=== PATIENT | male | born 1935 | race Caucasian/White ===

== ENCOUNTER 2020-10-10 11:05 | Emergency (ER) | payer OTHER, MEDICARE, MEDICAID, SELFPAY ==
[2020-10-10] VITALS (7 sets, daily range): BP systolic 153–183; BP diastolic 87–92; PULSE 73–93; RESP 17–22; TEMP 36.5–36.6; O2SAT 90–96; BMI 26.4
--- NOTE | 2020-10-10 12:11 | XR_ITS ---
WS: [id number] Portable AP upright chest, 10/10/2020 Clinical Data: sob Comparison: None. Findings: No nodules, masses or effusions are seen. The heart is normal. The pulmonary vascularity is not increased. No pneumonia or pneumothorax is seen. The aortic arch and descending aorta show minim al calcification and tortuosity. The diaphragms are flattened. There are monitor leads on the chest w all. XR/XR chest 1V portable [id number] Impression: Atherosclerosis and hyperinflation.
[2020-10-10] MEDS: ipratropium-albuterol 3 mL Neb INHALATION (12:27)
--- NOTE | 2020-10-10 12:42 | ED_ITS ---
Documented by User: Mario Sanders MD 10/10/20 14:44 HPI - SOB/Dyspnea General: Chief Complaint: Shortness of Breath/Dyspnea Stated Complaint: SOB, anxiety, Time Seen by Provider: 10/10/20 11:52 Source: patient Mode of arrival: ambulatory Limitations: no limitations History of Present Illness: HPI Narrative: 85-year-old male who has history of congestive heart failure. He states he has got chronic shortness of breath and cough. [facility] his [facility]. He said some exertional dyspnea he states this is pretty typical. He had an increased cough. Denies any fever. Denies any worsening improving factors. Patient resting comfortably here. He is 95% on room air. Associated symptoms: Deny abdominal pain, chest pain, fever(s), nausea or vomiting Review of Systems Const: Denies: fever(s), chills, body aches or change in appetite Eyes: Denies: blurry vision or eye discomfort ENMT: Denies: throat pain or dental pain Card: Denies: chest pain Resp: Reports: dyspnea GI: Denies: abdominal pain, nausea, vomiting or diarrhea : Denies: dysuria Musc: Denies: neck pain or back pain Skin/Breast: Denies: rash Neuro: Denies: headache(s) Psych: Denies: depression Vince/Lymph: Denies: easy bruising All/Imm: Denies: urticaria Physical Exam Const: COMMON NORMALS: no acute distress, patient oriented x3 and healthy appearing HENMT: COMMON NORMALS: normocephalic and atraumatic HEAD & SCALP: normocephalic and atraumatic Eye: COMMON NORMALS: Equal, round and reactive pupils present and EOMs intact bilaterally PUPIL: Yes Equal, round and reactive pupils present Neck/C-Spine: COMMON NORMALS: full ROM and supple Chest: COMMONS NORMALS: normal inspection of the chest and normal palpation of entire chest wall Resp: COMMON NORMALS: normal respiratory effort, No retractions, No use of accessory muscles and clear to auscultation bilaterally AUSCULTATION: clear to auscultation bilaterally Cardio: COMMON NORMALS: regular rate, regular rhythm and No murmurs present (Cardio) RATE: regular rate RHYTHM: regular rhythm GI: COMMON NORMALS: Normal to inspection, nondistended, normoactive bowel sounds present, Soft to palpation, non-tender and no masses PALPATION: Yes Soft to palpation Extremity: COMMON NORMALS: normal to inspection and full ROM NARRATIVE EXTREMITY EXAM: 1+ edema Neuro: COMMON NORMALS: patient oriented x3, moves all extremities and no focal motor deficits Psych: COMMON NORMALS: mental status grossly normal, Normal thought process present and cooperative THOUGHT PROCESS: Normal thought process present Skin: COMMON NORMALS: no rashes or lesions noted and no wounds GENERAL SKIN EXAM: no rashes or lesions noted Course Vital Signs: Vital signs: Vital Signs Temperature 97.7 F 10/10/20 12:21 Pulse Rate 73 10/10/20 14:34 Respiratory Rate 21 H 10/10/20 14:34 Blood Pressure 183/91 10/10/20 14:34 Pulse Oximetry 96 10/10/20 14:34 MDM - SOB/Dyspnea MDM Narrative: Medical decision making narrative: Patient presents her dyspnea is chronic in nature with his COPD. He has no distress here. They were concerned about E[facility] findings that [facility]. He has no acute findings here and he is has no chest pain. He is stable for discharge is to follow-up his PCP and return if worsening. He understands agrees to plan. He has no signs of pulmonary embolism or acute coronary syndrome. Lab Data: Labs: Lab Results 10/10/20 10/10/20 10/10/20 Range/Units 12:30 12:30 12:30 WBC 6.6 (4.0-10.0) 10^3/ uL RBC 5.55 H (4.1-5.3) 10^6/u L Hgb 17.0 H (11.7-16.6) g/dL Hct 51.6 (42.0-52.0) % MCV 93.0 (80-94) fL MCH 30.6 (28.0-34.0) pg MCHC 32.9 (30.0-36.0) g/dL RDW 13.1 (12.1-15.1) % Plt Count 226 (130-400) 10^3/c mm MPV 10.0 (7.4-10.4) fL Neut % (Auto) 58.1 % Lymph % (Auto) 31.3 % Rhea % (Auto) 7.1 % Eos % (Auto) 2.6 % Baso % (Auto) 0.6 % Neut # (Auto) 3.86 (1.8-7.7) 10^3/u L Lymph # (Auto) 2.1 (0.8-4.8) 10^3/u L Rhea # (Auto) 0.5 (0.2-0.9) 10^3/u L Eos # (Auto) 0.2 (0.0-0.8) 10^3/u L Baso # (Auto) 0.0 (0.0-0.1) 10^3/u L Nucleated RBC % (a uto) 0 % Nucleated RBCs # 0.0 /100WBC Sodium 139 (136-145) mmol/L Potassium 4.8 (3.5-5.1) mmol/L Chloride 104 (98-107) mmol/L Carbon Dioxide 27 (22-29) mmol/L Anion Gap 12.8 (5-19) BUN 13 (8-23) mg/dL Creatinine 0.9 (0.7-1.2) mg/dL GFR Calculation Not Reportable Glucose 96 (65-115) mg/dL Calculated Osmolal ity 288 (285-295) mOsm/k g Calcium 8.8 (8.5-10.5) mg/dL Total Bilirubin 0.4 (0.15-1.2) mg/dL AST 22 (0-40) U/L ALT 27 (0-41) U/L Alkaline Phosphata se 56 (40-130) IU/L NT-Pro-B Natriuret Pep 82 (0-450) pg/mL Total Protein 6.9 (6.6-8.7) g/dL Albumin 4.3 (3.5-5.2) g/dL Globulin 2.6 (1.3-4.6) g/dL SARS-CoV-2 Ag (Rap id) Negative (Negative) Imaging Data^: CXR: Attestation: I personally reviewed and interpreted this imaging study as follows: Radiologist's impression: [address] [address] XRay Report Signed Patient: John Li Unit #: [id number] : 1935 Acct#:[id number] Age/Sex: 85 / M ADM Date: 10/10/20 Loc: ER Room/Bed: Attending Dr: Ordering Provider/Ordering MD: Mario Sanders MD Date of Service: 10/10/20 Procedure(s): XR chest 1V portable [id number] Accession Number(s): [id number] Report Number: [id number] WS: [id number] Portable AP upright chest, 10/10/2020 Clinical Data: sob Comparison: None. Findings: No nodules, masses or effusions are seen. The heart is normal. The pulmonary vascularity is not increased. No pneumonia or pneumothorax is seen. The aortic arch and descending aorta show minimal calcification and tortuosity. The diaphragms are flattened. There are monitor leads on the chest wall. XR/XR chest 1V portable [id number] Impression: Atherosclerosis and hyperinflation. Dictated By: Letty Fontaine MD Signed By: Letty Fontaine MD Signed Date/Time: 10/10/20 1250 DD/ 1249 EKG Data^: EKG 1: Attestation: I personally reviewed and interpreted this EKG as follows: EKG Interpretation Date: 10/10/20 EKG interpretation time: 13:59 Interpretation: nsr hr [address] or t wave abnormalities qrs 80 qtc 393 Discharge Plan Discharge Patient Disposition: Home Clinical Impression: Dyspnea Qualifiers: Dyspnea type: unspecified Qualified Code(s): R06.00 - Dyspnea, unspecified Condition: Stable Prescriptions: No Action alprazolam 0.25 mg tablet 0.25 mg PO TID PRN (Reason: Anxiety) RF: 0 pravastatin 80 mg Tablet 80 mg PO DAILY RF: 0 albuterol sulfate 90 mcg/actuation HFA aerosol inhaler 2 puff INHALATION Q4H PRN (Reason: Shortness Of Breath) RF: 0 Symbicort 160-4.5 mcg/actuation HFA aerosol inhaler 2 puff INHALATION BID RF: 0 Spiriva Respimat 2.5 mcg/actuation Mist 1 puff INHALATION DAILY RF: 0 Discharge Orders: Discharge ED (Routine); Ordered 10/10/20 Ordered By: Mario Sanders Referrals: Georgia Figueredo [Primary Care Provider] - 1-3 days Discharge Diet: Advance as tolerated Discharge Activity: Use walker/crutches as instructed Patient Instructions: Dyspnea (ED) Coding Level of Care Code ED Certified Vehicle Fire Investigator for Chg Fwd Exam Comprehensive Documented by User: Kyaw Devi DO 10/14/20 06:27 HPI - SOB/Dyspnea General: Chief Complaint: Shortness of Breath/Dyspnea Stated Complaint: SOB, anxiety, Time Seen by Provider: 10/10/20 11:52 Course Vital Signs: Vital signs: Vital Signs Temperature 97.7 F 10/10/20 12: Pulse Rate 73 10/10/20 14:34 Respiratory Rate 21 H 10/10/20 14:34 Blood Pressure 183/91 10/10/20 14:34 Pulse Oximetry 96 10/10/20 14:34 MDM - SOB/Dyspnea MDM Narrative: Medical decision making narrative: Care turned over to Dr. Sanders at change shift see his notes for final diagnosis and disposition. Lab Data: Labs: Lab Results 10/10/20 10/10/20 10/10/20 Range/Units 12:30 12:30 12:30 WBC 6.6 (4.0-10.0) 10^3/ uL RBC 5.55 H (4.1-5.3) 10^6/u L Hgb 17.0 H (11.7-16.6) g/dL Hct 51.6 (42.0-52.0) % MCV 93.0 (80-94) fL MCH 30.6 (28.0-34.0) pg MCHC 32.9 (30.0-36.0) g/dL RDW 13.1 (12.1-15.1) % Plt Count 226 (130-400) 10^3/c mm MPV 10.0 (7.4-10.4) fL Neut % (Auto) 58.1 % Lymph % (Auto) 31.3 % Rhea % (Auto) 7.1 % Eos % (Auto) 2.6 % Baso % (Auto) 0.6 % Neut # (Auto) 3.86 (1.8-7.7) 10^3/u L Lymph # (Auto) 2.1 (0.8-4.8) 10^3/u L Rhea # (Auto) 0.5 (0.2-0.9) 10^3/u L Eos # (Auto) 0.2 (0.0-0.8) 10^3/u L Baso # (Auto) 0.0 (0.0-0.1) 10^3/u L Nucleated RBC % (a uto) 0 % Nucleated RBCs # 0.0 /100WBC Sodium 139 (136-145) mmol/L Potassium 4.8 (3.5-5.1) mmol/L Chloride 104 (98-107) mmol/L Carbon Dioxide 27 (22-29) mmol/L Anion Gap 12.8 (5-19) BUN 13 (8-23) mg/dL Creatinine 0.9 (0.7-1.2) mg/dL GFR Calculation Not Reportable Glucose 96 (65-115) mg/dL Calculated Osmolal ity 288 (285-295) mOsm/k g Calcium 8.8 (8.5-10.5) mg/dL Total Bilirubin 0.4 (0.15-1.2) mg/dL AST 22 (0-40) U/L ALT 27 (0-41) U/L Alkaline Phosphata se 56 (40-130) IU/L NT-Pro-B Natriuret Pep 82 (0-450) pg/mL Total Protein 6.9 (6.6-8.7) g/dL Albumin 4.3 (3.5-5.2) g/dL Globulin 2.6 (1.3-4.6) g/dL SARS-CoV-2 Ag (Rap id) Negative (Negative) Discharge Plan Discharge Patient Disposition: Home Clinical Impression: Dyspnea Qualifiers: Dyspnea type: unspecified Qualified Code(s): R06.00 - Dyspnea, unspecified Condition: Stable Prescriptions: No Action alprazolam 0.25 mg tablet 0.25 mg PO TID PRN (Reason: Anxiety) RF: 0 pravastatin 80 mg Tablet 80 mg PO DAILY RF: 0 albuterol sulfate 90 mcg/actuation HFA aerosol inhaler 2 puff INHALATION Q4H PRN (Reason: Shortness Of Breath) RF: 0 Symbicort 160-4.5 mcg/actuation HFA aerosol inhaler 2 puff INHALATION BID RF: 0 Spiriva Respimat 2.5 mcg/actuation Mist 1 puff INHALATION DAILY RF: 0 Discharge Orders: Discharge ED (Routine); Ordered 10/10/20 Ordered By: Mario Sanders Referrals: Georgia Figueredo [Primary Care Provider] - 1-3 days Discharge Diet: Advance as tolerated Discharge Activity: Use walker/crutches as instructed Patient Instructions: Dyspnea (ED) Coding Level of Care Code ED Certified Vehicle Fire Investigator for Chg Fwd Exam Comprehensive
[2020-10-10 12:43] LABS: Basophils % 0.6 %; Eosinophils # 0.2 10^3/uL (0.0-0.8); Eosinophils % 2.6 %; Hematocrit 51.6 % (42.0-52.0); Lymphocytes # 2.1 10^3/uL (0.8-4.8); Lymphocytes % 31.3 %; Mean Corpuscular HGB Conc 32.9 g/dL (30.0-36.0); Mean Corpuscular Hemoglobin 30.6 pg (28.0-34.0); Monocytes # 0.5 10^3/uL (0.2-0.9); Monocytes % 7.1 %; Neutrophils # 3.86 10^3/uL (1.8-7.7); Neutrophils % 58.1 %; Nucleated Red Blood Cells % 0 %; Platelet Count 226 10^3/cmm (130-400); Red Blood Count 5.55 10^6/uL (4.1-5.3); Red Cell Distribution Width 13.1 % (12.1-15.1); White Blood Count 6.6 10^3/uL (4.0-10.0)
[2020-10-10 13:15] LABS: Alanine Aminotransferase 27 U/L (0-41); Albumin Level 4.3 g/dL (3.5-5.2); Alkaline Phosphatase 56 IU/L (40-130); Anion Gap 12.8 (5-19); Aspartate Amino Transferase 22 U/L (0-40); Blood Urea Nitrogen 13 mg/dL (8-23); Calcium 8.8 mg/dL (8.5-10.5); Carbon Dioxide 27 mmol/L (22-29); Chloride 104 mmol/L (98-107); Globulin 2.6 g/dL (1.3-4.6); Glucose 96 mg/dL (65-115); NT Pro B Type Natriuretic Pept 82 pg/mL (0-450); Osmolality Calculated 288 mOsm/kg (285-295); Potassium 4.8 mmol/L (3.5-5.1); Sodium 139 mmol/L (136-145); Total Bilirubin 0.4 mg/dL (0.15-1.2); Total Protein 6.9 g/dL (6.6-8.7)
--- NOTE | 2020-10-10 13:33 | ECG_ITS ---
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 [email or web address] medical [email or web address], [email or web address]/[id number]
[2020-10-10 14:12] LABS: SARS Covid-2 Antigen Negative (Negative)
== END 2020-10-10 14:46 | disposition home or self-care (01) ==
PROVIDERS: Emergency Provider Emergency Medicine; PCP Nurse Practitioner Family
DX: R06.00 Dyspnea, unspecified (principal); J44.9 Chronic obstructive pulmonary disease, unspecified
CPT/HCPCS: 71045; 80053; 83880; 85025; 87426; 93005; 94640; 96374; 99284; J2930

== ENCOUNTER 2021-01-10 08:35 | Outpatient (CLI) | payer OTHER, SELFPAY ==
--- NOTE | 2021-01-10 09:19 | ECG_ITS ---
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 Interpretive Statements NAME OF STUDY: LEXISCAN SESTAMIBI STRESS TEST INDICATION: Shortness of breath on exertion PROCEDURE: At the baseline, the blood pressure was 176/92 mmHg, oxygen saturation 92% with a heart rate of 75 bpm. The electrocardiogram showed normal sinus rhythm with ST depression and T wave inversion in inferolateral leads (lead II, 3, aVF, I, V4 to V6. The Lexiscan was infused over a period of 20 seconds. A total of 0.4 milligrams of Lexiscan was infused. The stress phase was continued for a total of 5 minutes. Heart rate at the end of the stress phase was 87 bpm, oxygen saturation 96% with a blood pressure of 184/100 mmHg. The EKG at the peak infusion revealed no significant ST-T wave changes. The study was terminated to protocol completion. Sestamibi was injected 20 seconds after the Lexiscan infusion. Blood pressure at the end of the recovery phase was 174/97 mmHg, oxygen saturation 94% with a heart rate of 85 beats per minute. CONCLUSION: 1. Equivocal EKG changes with the LexiScan infusion due to baseline ST-T wave changes. 2. No LexiScan induced chest pain or cardiac arrhythmia. 3. Baseline hypertension with normal blood pressure and heart rate response. 4. Sestamibi/sestamibi perfusion scan pending; see separate report. Electronically Signed On 01-13-2021 18:30:04 ELECTRONIC PUBLISHER by Vanda Gomes M.D. [id number]
--- NOTE | 2021-01-10 09:19 | NMCV_ITS ---
NM krish perf SPECT r/s* [id number] John Li Age: 85 Gender: M : 1935 Exam Date: 01/10/2021 09:46 Ordering Phys: Vanda Gomes MD ([email or web address]) Technologist: JOSEPH Juarez Exam Location: [facility] Indications: Shortness of breath on exertion STRESS TEST [facility] IMAGE PROTOCOL Rest/Stress 1 Lexiscan Day Radiopharmaceutical Dose (mCi) Administration Site Administered by Rest: Tc-99m 10.6 IV JOSEPH Juarez Sestamibi Stress:Tc-99m 32.4 IV JOSEPH Pablo Sestamibi Rest: 10-Jan-2021 60 Discovery 630 Stress: 10-Jan-2021 30 Discovery 630 0.4mg Lexiscan. Images obtained in supine and prone position. SPECT RESULTS Technical Quality: Excellent Raw Data Analysis: Normal Image Corrections: No attenuation or motion correction applied Summed Stress Score: 0 Summed Rest Score: 0 Summed Difference Score: 0 PERFUSION FINDINGS SPECT images demonstrate homogeneous tracer distribution throughout the myocardium. FUNCTIONAL RESULTS (calculated via Gated SPECT) Stress Image LV EF (%): 93 Stress EDV (mL):57 TID: 0.89 Stress ESV (mL):4 FUNCTIONAL FINDINGS: The left ventricle is normal in size. Transient Ischemia Dilatation of 0.89. There is normal left ventricular systolic function. The left ventricular ejection fraction is normal with a value of 93%. This is overestimated due to small left ventricle cavity size. There is hyperdynamic left ventricular wall thickening. IMPRESSIONS 1. Myocardial perfusion imaging is normal. 2. Overall left ventricular systolic function is normal without regional wall motion abnormalities, LVEF=93%. 3. Equivocal EKG changes with Lexiscan infusion due to baseline ST-T wave changes. 4. No coronary ischemia based on the study. Vanda Gomes MD (Electronically Signed) Final Date: 13 January 2021 18:34 S
[2021-01-10 09:23] VITALS: BMI 26.1
[2021-01-10] MEDS: regadenoson 0.4 Mg/5 ml Syringe IVP (11:02)
[2021-01-10 11:10] VITALS: BP 174/97; PULSE 85
== END 2021-01-10 08:36 | disposition home or self-care (01) ==
PROVIDERS: PCP Nurse Practitioner Family; Visit Provider Internal Medicine Cardiovascular Disease
DX: R06.02 Shortness of breath (principal)
CPT/HCPCS: 78452; 93017; A9500; J2785

== ENCOUNTER 2021-11-17 14:06 | Outpatient (CLI) | payer OTHER, SELFPAY ==
--- NOTE | 2021-11-17 14:11 | CT_ITS ---
WS: [id number] CTA THORACIC AORTA WITH AND WITHOUT CONTRAST. 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 After noncontrast imaging is performed, CT angiogram is performed during injection of Omnipaque 350; 95 mL IV.. Sagittal and c oronal reconstructions, sagittal and coronal MIP imaging is submitted. All CT scans at [facility] use at least one of these dose optimization techniques: automated exposure control; mA and/or kV adjustment per patient size (includes targeted exams where dose is matched to clinical indication); or iterative reconstruction. DLP: 1218.95 mGy.cm COMPARISON: None available. Moderate atherosclerotic plaque within the thoracic aorta. No dissection. There is mild ectasia but n o aneurysm. Aortic annulus is normal caliber. Maximum diameter of the ascending aorta 3.5 cm. Moderat e atherosclerotic plaque through the arch of the aorta. Descending aorta at the level of the trachea measures 2.3 cm. There is asymmetric thrombus measuring up to 0.6 cm within the aortic lumen. Calcifi ed plaque in the luminal plaque throughout the remaining aorta. Small amount of plaque at the origins of the great vessels. Normal size heart. Heavy calcified plaque noted in the [place] coronary arteries. No adenopathy. Hyperexpanded lungs from emphysema. There are a few scattered granulomas. No solid mass or pneumonia. Mild pleural-based thickening along the medial RIGHT lower lobe. Suprarenal abdominal aorta plaque. There is moderate stenosis involving the origin of the RIGHT renal artery. There is an accessory renal artery also on the RIGHT. Moderate amount of plaque and mild wolf nosis SMA. Gallbladder is contracted. Mild thickening of each adrenal gland. No mass. CT/CT angio chest [id number] IMPRESSION: 1. No thoracic aortic aneurysm. Maximum transverse diameter 3.5 cm of the asce nding aorta. 2. Moderate amount of plaque and intimal thickening throughout the aorta as de scribed above. 3. Centrilobular emphysema. 4. Suprarenal aortic calcification with mild to moderate plaque extending into the SMA and renal arteries.
[2021-11-17] MEDS: iohexol 350 mg/mL 100 mL Btl IV (15:09)
== END 2021-11-17 14:07 | disposition home or self-care (01) ==
LOC: RAD 14:08
PROVIDERS: PCP Nurse Practitioner Family; Visit Provider Family Medicine
DX: J43.2 Centrilobular emphysema (principal); F17.200 Nicotine dependence, unspecified, uncomplicated
CPT/HCPCS: 71275

== ENCOUNTER → 2023-04-05 10:54 | Outpatient (BNVA) | payer MEDICARE, SELFPAY | PROVIDERS: Visit Provider Nurse Practitioner Family | DX: N39.0 Urinary tract infection, site not specified (principal) | CPT/HCPCS: 81000 ==